=== PATIENT | male | born 1950 ===

== ENCOUNTER → 2017-06-08 | Outpatient (REF) ==
[2017-06-08 19:57] LABS: PSA-TOTAL 5.42 ng/mL (0-4)
[2017-06-08 20:17] LABS: THYROID STIMULATING HORMONE 6.28 uIU/mL (0.465-4.680)
== END ==
LOC: ZLAB.WCH 18:44
PROVIDERS: Nurse Practitioner Family
DX: Z01.89 Encounter for other specified special examinations (principal)
CPT/HCPCS: G0103

== ENCOUNTER → 2018-06-07 | Outpatient (REF) ==
[2018-06-07 16:50] LABS: THYROID STIMULATING HORMONE 4.76 uIU/mL (0.465-4.680)
[2018-06-07 17:04] LABS: PSA-TOTAL 7.08 ng/mL (0-4)
== END ==
LOC: ZLAB.WCH 15:55
PROVIDERS: Physician Assistant
DX: Z01.89 Encounter for other specified special examinations (principal)
CPT/HCPCS: G0103